=== PATIENT | male | born 1940 | race Caucasian/White ===

== ENCOUNTER 2020-11-26 12:17 | Emergency (ER) | payer OTHER, SELFPAY ==
--- NOTE | ~2020-11-26 | XR_ITS ---
EXAMINATION: XR knee LT 3V EXAM DATE: 11/26/2020 12:47 INDICATION: Initial encounter following injury, with pain of the left knee. Twisting. TECHNIQUE: Three projections of the left knee. There is no prior study for comparison. FINDINGS: No evidence osteochondral defect or joint body in the left knee joint. There are no acute fractures or dislocations identified. There is no subcutaneous gas. There is moderate-sized joint effusion. There is moderate scattered arteriosclerotic disease. There is meniscal calcification. Anthony drocalcinosis can be an age related finding, but with other possible etiologies including CPPD, parat hyroid disorders, hemochromatosis, gout. 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 There are no radiopaqu e foreign bodies. IMPRESSION: 1. Moderate joint effusion. 2. Chronic findings Reviewed, dictated and finalized at location [facility]. [employer]
[2020-11-26 12:23] VITALS: BP 182/78; PULSE 57; RESP 18; TEMP 36.7; O2SAT 97
--- NOTE | 2020-11-26 12:27 | ED.LOWEXIN ---
HPI - Extremity Injury (Lower) General Chief Complaint: Extremity Injury, Lower Stated Complaint: left knee pain Time Seen by Provider: 11/26/20 12:19 Source: patient Mode of arrival: ambulatory Limitations: no limitations History of Present Illness HPI Narrative: Patient is an 81-year-old male complaining of left knee pain after he twisted it while working in his yard prior to arrival. Patient states his pain is a 5 out of 10, nonradiating, dull, aching. Patient denies any other pain or injury. Patient was able to ambulate after the injury. Patient ambulated to his room without difficulty. Related Data Allergies Allergy/AdvReac Type Severity Reaction Status Date / Time No Known Allergies Allergy Unverified 03/14/16 19:19 Review of Systems Review of Systems: All systems reviewed & are unremarkable except as noted in HPI and below PMFSH Comments Past medical history: None Family history: Noncontributory Social history: Non-smoker no EtOH use. Lives at home Exam Const: General: cooperative, healthy appearing, comfortable, no acute distress, well developed, alert and awake; No confusion Orientation/consciousness: oriented to person, oriented to place, oriented to time, patient oriented x3 and No confusion Limitations: no limitations HENMT: Head: normal to inspection, normocephalic and atraumatic Ears: hearing grossly normal bilaterally, TM normal on the right and TM normal on the left General nose exam: Normal external nose present, Normal nares present and No nasal discharge present Face and sinus: normal facial exam Mouth: Yes Normal oral and palatal mucosa present, Yes lip normal, Yes tongue normal and Yes oropharynx normal Throat: posterior oropharynx normal, tonsils normal and uvula midline Eyes: General: appearance normal, both eyes and all related structures Pupils: Equal, round and reactive pupils present EOM: EOMs intact bilaterally Neck: Neck: normal visual inspection, full ROM, no lymphadenopathy and no meningeal signs Chest: Chest palpation & inspection: normal inspection of the chest Resp: Effort & Inspection: normal respiratory effort, able to speak in complete sentences, no respiratory distress and not tachypneic Auscultation: clear to auscultation bilaterally, no crackles, no rales, no rhonchi and no wheezes Cardio: Rate: regular rate Rhythm: regular rhythm GI: Inspection: normal to inspection GI Palp: No abdominal tenderness, Yes Soft to palpation, No Tenderness to palpation present (GI), No Guarding due to palpation present (GI), No Rigid due to palpation and No Rebound tenderness present Auscultation: normal bowel sounds : General: Yes no CVA tenderness Back/Spine/Pelvis: Back: no CVA tenderness Skin: General skin exam: normal color, no rashes or lesions noted, elasticity normal and turgor normal Neuro: General: oriented to person, oriented to place, oriented to time, patient oriented x3, tone normal, moves all extremities, Normal light touch and pain sensation, no meningeal signs, no focal motor deficits, CN's II-XI intact bilaterally and No confusion Cranial nerves: Yes Equal, round and reactive pupils present Speech: No Abnormal speech present Sensory Exam: No Sensory deficit (Neuro) Extrem: General: full ROM and capillary refill normal Left lower extremity: knee (Mild swelling of the left knee) Details: swelling Other: No significant swelling the left knee. Full range of motion of the left knee. Mild pain on palpation at the knee, left. Neurovascular is intact. Patient ambulated to his room. Psych: Appearance: grossly normal and well kempt Mental Status: mental status grossly normal Speech and movement: Normal speech and movement present Affect: normal affect Attitude: cooperative Thought process: Normal thought process present Thought content: Yes Normal thought content present Insight: Good insight present (Psych) Judgement: Good judgement present (Psych) Course Vital Si
[2020-11-26] MEDS: KETOROLAC 30 MG/ML VIAL (*BKC) IM (12:33)
[2020-11-26 13:27] VITALS: BP 150/72; PULSE 78; RESP 18; O2SAT 99
== END 2020-11-26 13:30 | disposition home or self-care (01) ==
PROVIDERS: Emergency Provider Emergency Medicine; PCP Internal Medicine
DX: S83.92XA Sprain of unspecified site of left knee, initial encounter (principal); X50.9XXA Other and unspecified overexertion or strenuous movements or postures, initial encounter
CPT/HCPCS: 73562; 96372; 99283; J1885

== ENCOUNTER 2021-10-12 15:46 | Emergency (ER) | payer OTHER, SELFPAY ==
[2021-10-12] VITALS (8 sets, daily range): BP systolic 143–174; BP diastolic 69–81; PULSE 72–90; RESP 16–29; TEMP 36.3–36.6; O2SAT 97–100
--- NOTE | ~2021-10-12 | XR_ITS ---
EXAMINATION: XR chest 1V portable INDICATION: Cough and weakness TECHNIQUE: Portable AP chest at 1622 hours COMPARISON: None available FINDINGS: There are airspace opacities of the mid and lower lung zones. No pleural effusion or pneumo thorax is identified. The cardiomediastinal silhouette is normal. A radiopaque density projecting ove r the right hemidiaphragm may be external to the patient. IMPRESSION: 1. Airspace opacities of the mid and lower lung zones, likely pneumonia. Reviewed, dictated and finalized at location [facility]. [employer]
--- NOTE | 2021-10-12 15:52 | ECG_ITS ---
Measurements Intervals [place] Rate: 82 P: 63 KS: 155 QRS: -56 QRSD: 88 T: 22 QT: 376 QTc: 440 Interpretive Statements SINUS RHYTHM LEFT AXIS DEVIATION POSSIBLE LEFT ATRIAL ENLARGEMENT RSR' IN V1 OR V2, CONSIDER RIGHT VENTRICULAR HYPERTROPHY OR RIGHT VCD CONSIDER INFERIOR INFARCT, AGE INDETERMINATE BASELINE ARTIFACT- I, II, III ABNORMAL ECG Electronically Signed On 10-12-2021 16:21:44 [employer] by Kartik Hagen D.O.
--- NOTE | 2021-10-12 15:54 | PC.NURSE ---
Per patient's daughter, patient has been weaker than normal for approx 7 days, unsteady, a little confusion, diarrhea for 3-4 days. No recent antibiotic therapy, no known sick contacts. Denies any falls at home. Patient lives with his daughter.
[2021-10-12 16:12] LABS: Basophils Percent Auto 0.2 % (0.2-1.2); Hematocrit 40.3 % (42.0-52.0); Hemoglobin 13.8 g/dL (14.0-18.0); Immature Granulocyte Absolute 0.06 K/mm3 (0.00-0.031); Immature Granulocyte Percent A 0.6 % (0-0.5); Lymphocytes Absolute Auto 0.71 K/mm3 (0.9-3.2); Mean Corpuscular HGB Conc 34.2 g/dl (32-36); Mean Corpuscular Hemoglobin 31.2 pg (26-34); Mean Platelet Volume 10.9 fl (7.4-10.4); Monocytes Absolute Auto 0.8 K/mm3 (0.1-0.6); Monocytes Percent Auto 7.7 % (2.6-8.5); Neutrophils Absolute Auto 8.6 K/mm3 (1.3-6.7); Neutrophils Percent Auto 84.5 % (45.5-73.1); Platelet Count Result 231 k/mm3 (150-375); Red Blood Count 4.43 M/mm3 (4.6-6.20); Red Cell Distribution Width 13.3 % (11.5-14.5); White Blood Count 10.1 K/mm3 (4.5-10.0)
--- NOTE | 2021-10-12 16:12 | ED.WEAKNESS ---
HPI - Weakness General Chief complaint: Weakness Stated complaint: dehydration Time Seen by Provider: 10/12/21 16:06 Source: RN notes reviewed History of Present Illness HPI Narrative: Patient presents emergency room from home for weakness. Per the family the patient has been weak over the past 1 week cc not been getting up as much and has been more tired he also had patient had a decreased appetite and patient states he feels like he is dehydrated. States he was having some nausea with 1 episode of vomiting 2 days ago but none since then he denies any fevers or chills chest pain shortness of breath abdominal pain or any other symptoms. Related Data Allergies Allergy/AdvReac Type Severity Reaction Status Date / Time No Known Allergies Allergy Unverified 03/14/16 19:19 Review of Systems Review of Systems: Gen.: Denies fevers or chills ENT: Denies congestion Respiratory: Denies shortness of breath or cough CV: Denies chest pain or palpitations GI: Denies abdominal pain reports nausea vomiting 2 days ago but none since no diarrhea denies burning, urgency, frequency or hematuria Musculoskeletal: Denies back pain or muscle pain Neuro: Reports weakness Skin: Denies rash Except as documented, all other systems reviewed and negative [facility] Past Medical History Medical History (Updated 10/12/21 @ 18:47 by Igor Martin DO) Patient denies significant medical history Social History Social History (Updated 10/12/21 @ 18:46 by Igor Martin DO) Smoking status: Never smoker Exam Narrative: APPEARANCE: No acute distress, nontoxic, resting in bed EYES: EOMI HEENT: Normocephalic, atraumatic, OMM hard of hearing RESPIRATORY: No respiratory distress Clear to auscultation bilaterally with no rhonchi wheezing or rales. CARDIOVASCULAR: Regular rate and rhythm without murmurs rubs or gallops. ABDOMINAL: Soft, nontender, nondistended, no rebound or guarding MUSCULOSKELETAl: Moves all extremities. No clubbing, cyanosis or edema. NEURO: Awake and alert. Following commands, speech normal, no focal deficits SKIN:: Warm, dry. No rashes lesions or abrasions PSYCHIATRIC: Normal affect/mood, Course Course Emergency Course: Patient drinking water in the ER. Able to get up and ambulate in the ED with no difficulty oxygen saturations remain 95% and higher Discussed with patient results of workup and diagnosis. Discussed need for follow-up with primary care, proper use of medication, and reasons to return to the emergency department. Patient understands and agrees to current treatment plan Vital Signs Vital signs: Vital Signs Temperature 97.9 F 10/12/21 15:48 Pulse Rate 87 10/12/21 15:48 Respiratory Rate 16 10/12/21 15:48 Blood Pressure 145/78 H 10/12/21 15:48 Pulse Oximetry 97 10/12/21 15:48 Temperature 97.4 F L 10/12/21 16:00 Pulse Rate 72 10/12/21 16:31 Respiratory Rate 25 H 10/12/21 16:31 Blood Pressure 158/69 H 10/12/21 16:31 Pulse Oximetry 100 10/12/21 16:31 MDM - Weakness Lab Data Result diagrams: 10/12/21 16:02 10/12/21 16:02 Labs: Lab Results 10/12/21 10/12/21 10/12/21 Range/Units 16:02 16:02 16:16 WBC 10.1 H (4.5-10.0) K/mm3 RBC 4.43 L (4.6-6.20) M/mm3 Hgb 13.8 L (14.0-18.0) g/dL Hct 40.3 L (42.0-52.0) % MCV 91.0 (80-100) fl MCH 31.2 (26-34) pg MCHC 34.2 (32-36) g/dl RDW 13.3 (11.5-14.5) % Plt Count 231 (150-375) k/mm3 MPV 10.9 H (7.4-10.4) fl Immature Gran % (Auto) 0.6 H (0-0.5) % Neut % (Auto) 84.5 H (45.5-73.1) % Lymph % (Auto) 7.0 L (18.3-44.2) % [place] % (Auto) 7.7 (2.6-8.5) % Eos % (Auto) 0.0 (0-4.4) % Baso % (Auto) 0.2 (0.2-1.2) % Lymph # (Auto) 0.71 L (0.9-3.2) K/mm3 [place] # (Auto) 0.8 H (0.1-0.6) K/mm3 Eos # (Auto) 0.0 (0-0.3) K/mm3 Baso # (Auto) 0.0 (0.0-0.1) K/mm3 Abs Immat Gran (auto) 0.06 H (0.00-0.031) K/mm3 Absolute Neuts (aut
[2021-10-12] MEDS: SODIUM CHLORIDE 0.9% IV 1,000 ML 999 ML IV CONT (16:26)
[2021-10-12 16:53] LABS: Alanine Aminotransferase 115 U/L (4-50); Albumin Level 3.5 g/dL (3.5-5.1); Alkaline Phosphatase 99 U/L (38-126); Anion Gap 9 mmol/L (8-16); Aspartate Amino Transferase 177 U/L (17-59); Bilirubin,Total 1.1 mg/dL (0.2-1.3); Blood Urea Nitrogen 17 mg/dL (9-20); Calcium 8.7 mg/dL (8.4-10.2); Carbon Dioxide 28 mmol/L (22-30); Chloride 98 mmol/L (98-107); Estimated CRCL calculation 68 ml/min; Estimated Glomerular Filt Rate > 60; Glucose 132 mg/dL (65-110); Potassium 3.3 mmol/L (3.4-5.0); Sodium 135 mmol/L (137-145)
[2021-10-12 17:02] LABS: Lipase 87 U/L (23-300)
[2021-10-12 17:26] LABS: SARS-CoV-2 RNA PCR Positive
[2021-10-12 17:51] LABS: Add Urine Microscopic? YES; Appearance Urine Clear (Clear); Bilirubin Urine Negative (Negative); Blood Urine Negative (Negative); Color Urine Amber (Yellow); Glucose Urine UA Negative (Negative); Ketones Urine Negative (Negative); Leukocyte Esterase Ur Negative LEU/UL (Negative); Mucus Urine Rare /lpf; Nitrate Urine Negative (Negative); Protein Urine 2+ mg/dL (Negative); Specific Grav Ur 1.023 (1.001-1.035); Squamous Epithelial Cell Urine Rare /hpf (Few); WBC Urine 0-3 /hpf
--- NOTE | 2021-10-12 17:54 | PC.NURSE ---
Patient ambulated with group underwriter from bed to door and back without difficulty. Patient saturation sitting at bedside was 94%, upon standing and walking patient's oxygen saturations were 95% and returning to bed it was 95%. Patient did become SOB with walking but oxygen saturations remained 95%.
== END 2021-10-12 19:08 | disposition home or self-care (01) ==
PROVIDERS: Emergency Medicine; Emergency Provider Emergency Medicine; PCP Internal Medicine
DX: U07.1 COVID-19 (principal); R94.31 Abnormal electrocardiogram [ECG] [EKG]; R91.8 Other nonspecific abnormal finding of lung field
CPT/HCPCS: 36415; 71045; 80053; 81001; 83690; 85025; 93005; 96360; 99284; C9803; J7030; U0003; U0005

== ENCOUNTER 2022-06-09 12:47 | Emergency (ER) | payer OTHER, SELFPAY ==
--- NOTE | ~2022-06-09 | CT_ITS ---
EXAMINATION: CT abdomen pelvis wo con DATE: 06/09/2022 15:39 INDICATION: Lower abdominal pain, dysuria TECHNIQUE: Computed tomography (CT) of the abdomen and pelvis was performed without intravenous contr ast. Automated exposure control and iterative reconstruction technique were employed. Exam dose: 255 .46 mGy-cm total exam DLP. COMPARISON: 03/10/2016 CT abdomen pelvis FINDINGS: Emphysematous changes are again noted in the included lower lung zones, with prominent rela tively peripheral septal soft tissue thickening and honeycombing which may be consistent with superim posed usual interstitial pneumonia type interstitial fibrosis. There is focal discoid atelectasis or scarring at the base of the lingula. No pericardial or pleural effusion. There are multiple stones in the dependent aspect of the gallbladder. There is a prominent calcificat ion at the right posterolateral dome of the liver. Stable left hepatic probable cyst. Normal splenic size. There are multiple pancreatic calcifications consistent with chronic pancreatitis. No adrenal mass lesion or renal mass lesion is evident. No ureteral calculus or hydroureteronephrosis . The urinary bladder is unremarkable. There is prostate enlargement and calcification. Normal appendix. Diverticulosis of the colon, particularly involving the sigmoid colon; no CT evidenc e of diverticulitis. There is a prominent amount fecal material in the rectum and colon but no bowel obstruction or intraperitoneal free air is detected. There is extensive calcification of the abdominal aorta and iliac arteries but no abdominal aortic an eurysm. No intraperitoneal or retroperitoneal or pelvic mass lesion or adenopathy or ascites. Degenerative changes of the thoracic and lumbar spine including severe multilevel degenerative disc d isease and spurring of the lumbar spine and degenerative change at the apophyseal joints. No suspicio us osteolytic or osteoblastic lesions are noted. Bilateral hip osteoarthritis. IMPRESSION: Emphysema, probable superimposed usual interstitial pneumonia type interstitial pulmonar y fibrosis Focal discoid atelectasis or scarring at the base of the lingula Cholelithiasis Chronic benign focal calcification of the hepatic dome Chronic pancreatitis Prostate enlargement and calcification Diverticulosis of the colon; no evidence of diverticulitis Normal appendix Reviewed, dictated and finalized at [facility]. Reviewed, dictated and finalized at location [facility]. IMPRESSION: Emphysema, probable superimposed usual interstitial pneumonia type interstitial pulmonary fibrosis Focal discoid atelectasis or scarring at the base of the lingula Cholelithiasis Chronic benign focal calcification of the hepatic dome Chronic pancreatitis Prostate enlargement and calcification Diverticulosis of the colon; no evidence of diverticulitis Normal appendix
[2022-06-09 13:02] VITALS: BP 123/64; PULSE 79; RESP 14; TEMP 37.1; O2SAT 99
[2022-06-09 15:15] LABS: Appearance Urine Clear (Clear); Bilirubin Urine Negative (Negative); Blood Urine Negative (Negative); Color Urine Yellow (Yellow); Glucose Urine UA Negative (Negative); Ketones Urine Negative (Negative); Leukocyte Esterase Ur Negative LEU/UL (Negative); Nitrate Urine Negative (Negative); Protein Urine Negative (Negative); Urobilinogen Urine 0.2 mg/dL (<2.0); pH Urine 6.5 (5.0-9.0)
[2022-06-09 15:20] LABS: Mucus Urine Rare /lpf; RBC Urine 0-2 /hpf (0-2); Squamous Epithelial Cell Urine Rare /hpf (Few); WBC Urine 0-3 /hpf
[2022-06-09 15:24] LABS: Add Urine Microscopic? NO
[2022-06-09 16:00] LABS: Basophils Percent Auto 0.5 % (0.2-1.2); Eosinophils Percent Auto 0.5 % (0-4.4); Hematocrit 42.1 % (42.0-52.0); Hemoglobin 14.1 g/dL (14.0-18.0); Immature Granulocyte Absolute 0.13 K/mm3 (0.00-0.031); Immature Granulocyte Percent A 1.5 % (0-0.5); Lymphocytes Absolute Auto 1.82 K/mm3 (0.9-3.2); Lymphocytes Percent Auto 21.4 % (18.3-44.2); Mean Corpuscular HGB Conc 33.5 g/dl (32-36); Mean Corpuscular Hemoglobin 31.3 pg (26-34); Mean Corpuscular Volume 93.3 fl (80-100); Mean Platelet Volume 11.4 fl (7.4-10.4); Monocytes Absolute Auto 0.4 K/mm3 (0.1-0.6); Neutrophils Absolute Auto 6.1 K/mm3 (1.3-6.7); Neutrophils Percent Auto 71.1 % (45.5-73.1); Platelet Count Result 176 k/mm3 (150-375); Red Blood Count 4.51 M/mm3 (4.6-6.20); Red Cell Distribution Width 12.9 % (11.5-14.5); White Blood Count 8.5 K/mm3 (4.5-10.0)
[2022-06-09 16:14] LABS: Alanine Aminotransferase 16 U/L (6-50); Albumin Level 4.3 g/dL (3.5-5.1); Alkaline Phosphatase 65 U/L (38-126); Anion Gap 9 mmol/L (8-16); Aspartate Amino Transferase 27 U/L (17-59); Bilirubin,Total 0.5 mg/dL (0.2-1.3); Blood Urea Nitrogen 12 mg/dL (9-20); Calcium 8.9 mg/dL (8.4-10.2); Carbon Dioxide 24 mmol/L (22-30); Chloride 101 mmol/L (98-107); Estimated Glomerular Filt Rate > 60; Glucose 91 mg/dL (65-110); Potassium 4.1 mmol/L (3.4-5.0); Sodium 134 mmol/L (137-145)
[2022-06-09] MEDS: SULFAMETHOXAZOLE/TRIMETHOPRIM 800/160 MG DS TABLET 1 TAB PO (17:32)
[2022-06-09 17:34] VITALS: BP 155/91; PULSE 81; RESP 14; O2SAT 99
--- NOTE | 2022-06-09 17:35 | ED.GENADULT ---
HPI - General Adult General Chief complaint: Urogenital-Male Stated complaint: UTI? Time Seen by Provider: 06/09/22 14:56 Source: RN notes reviewed History of Present Illness HPI narrative: Patient presents emergency department from home for dysuria. Patient states has been having pain with urination for the past 1 week. He states that it [place] every time that he urinates he denies any fevers or chills he states he does at times have some lower abdominal pain that goes into his lower back he denies any nausea vomiting diarrhea or any other symptoms he denies any urethral discharge Related Data Home Medications Medication Instructions Recorded Confirmed paroxetine HCl 20 mg tablet mg PO 06/09/22 06/09/22 Allergies Allergy/AdvReac Type Severity Reaction Status Date / Time No Known Allergies Allergy Verified 06/09/22 14:59 Review of Systems Review of Systems: Gen.: Denies fevers or chills ENT: Denies congestion Respiratory: Denies shortness of breath or cough CV: Denies chest pain or palpitations GI: Reports intermittent lower abdominal pain, denies nausea, emesis or diarrhea see HPI Musculoskeletal: Denies back pain or muscle pain Neuro: Denies numbness, tingling, weakness or focal weakness Skin: Denies rash Except as documented, all other systems reviewed and negative PMFSH Past Medical History Medical History Patient denies significant medical history Social History Social History Smoking status: Never smoker Exam Narrative: APPEARANCE: No acute distress, nontoxic, resting in bed EYES: EOMI HEENT: Normocephalic, atraumatic, OMM RESPIRATORY: No respiratory distress Clear to auscultation bilaterally with no rhonchi wheezing or rales. CARDIOVASCULAR: Regular rate and rhythm without murmurs rubs or gallops. ABDOMINAL: Soft, nontender, nondistended, no rebound or guarding : Circumcised male no skin lesions seen no phimosis paraphimosis no urethral discharge no scrotal swelling or erythema MUSCULOSKELETAl: Moves all extremities. No clubbing, cyanosis or edema. NEURO: Awake and alert. Following commands, speech normal, no focal deficits SKIN:: Warm, dry. No rashes lesions or abrasions PSYCHIATRIC: Normal affect/mood, Course Course Emergency Course: Discussed with Dr. Wallace at this time recommends patient started on Bactrim for a week with follow-up as an outpatient to cover for possible prostatitis Discussed with patient results of workup and diagnosis. Discussed need for follow-up with primary care, proper use of medication, and reasons to return to the emergency department. Patient understands and agrees to current treatment plan Vital Signs Vital signs: Vital Signs Temperature 98.8 F 06/09/22 13:02 Pulse Rate 79 06/09/22 13:02 Respiratory Rate 14 06/09/22 13:02 Blood Pressure 123/64 06/09/22 13:02 Pulse Oximetry 99 06/09/22 13:02 Oxygen Delivery Room Air 06/09/22 13:02 Temperature 98.8 F 06/09/22 13:02 Pulse Rate 81 06/09/22 17:34 Respiratory Rate 14 06/09/22 17:34 Blood Pressure 173/74 H 06/09/22 17:34 Pulse Oximetry 99 06/09/22 17:34 Oxygen Delivery Room Air 06/09/22 13:02 Medical Decision Making MDM Narrative Medical decision making narrative: Patient presents with dysuria exam is normal no skin lesions seen the UA shows no acute process imaging shows no signs of kidney stone lab work was within normal limits question possible prostatitis discussed with urology will start Bactrim with follow-up as an outpatient Vital Signs Vital Signs: Vital Signs Temperature 98.8 F 06/09/22 13:02 Pulse Rate 79 06/09/22 13:02 Respiratory Rate 14 06/09/22 13:02 Blood Pressure 123/64 06/09/22 13:02 Pulse Oximetry 99 06/09/22 13:02 Oxygen Delivery Room Air 06/09/22 13:02 Temperature 98.8 F 06/09/22 13:02 Pulse Rate 81
== END 2022-06-09 17:51 | disposition home or self-care (01) ==
PROVIDERS: Emergency Provider Emergency Medicine; PCP Internal Medicine
DX: R30.0 Dysuria (principal); J43.9 Emphysema, unspecified; K80.20 Calculus of gallbladder without cholecystitis without obstruction; K86.1 Other chronic pancreatitis; N40.0 Benign prostatic hyperplasia without lower urinary tract symptoms; K57.90 Diverticulosis of intestine, part unspecified, without perforation or abscess without bleeding; R91.8 Other nonspecific abnormal finding of lung field
CPT/HCPCS: 36415; 74176; 80053; 81003; 85025; 99284; A9270

== ENCOUNTER 2024-07-26 13:09 | Emergency (ER) | payer OTHER, SELFPAY ==
--- NOTE | ~2024-07-26 | CT_ITS ---
EXAMINATION: CT abdomen pelvis w con DATE: 07/26/2024 14:35 INDICATION: Jaundice. Hematuria. TECHNIQUE: Computed tomography (CT) of the abdomen and pelvis was performed with 100 mL Omnipaque 350 intravenous contrast. Automated exposure control and iterative reconstruction technique were employe d. The dose-length product was 294.56 mGy-cm. COMPARISON: CT abdomen and pelvis 06/09/2022 FINDINGS: There is severe emphysema. There is peripheral septal thickening in the lungs, consistent w ith chronic interstitial lung disease. There is mucous plugging in right lower lobe. There are airspa ce opacities in basilar right lower lobe, consistent with atelectasis versus pneumonia. There is no pleural effusion. The heart size is normal. No pericardial effusion. There is severe intrahepatic joan iary duct dilatation. 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 There are gallstones in the gallbladder, which is normal in size. Gallbladder wall thickening is n oted. The spleen is normal. There is an ill-defined hypodense mass in the head of the pancreas measur ing approximately 2.6 cm. There are calcifications in the pancreas, consistent with chronic pancreati tis. There is a stricture of the common duct. The prostate is mildly enlarged. There is diverticulosi s of the colon without evidence of diverticulitis. The appendix demonstrates a diameter of 9 mm, like ly not clinically significant. There is calcified atherosclerosis of the aorta and many of the other arteries. There is a moderate volume of ascites. There is widespread peritoneal nodularity, consisten t with carcinomatosis. 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 There is sev ere lumbar spondylosis. IMPRESSION: 1. 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 Diagnostic paracentesis is recommended. 2. 2.6 cm pancreatic mass, which may be primary adenocarcinoma or chronic pancreatitis. 3. Gallbladder wall thickening which may be chronic cholecystitis or less likely cholangiocarcinoma. 4. 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 5. Airspace opacities in right lung lower lobe, consistent with atelectasis versus pneumonia. 6. Emphysema and chronic interstitial lung disease. Reviewed, dictated and finalized at location [facility]. [employer] IMPRESSION: 1. 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 Diagnostic parace ntesis is recommended. 2. 2.6 cm pancreatic mass, which may be primary adenocarcinoma or chronic pancr eatitis. 3. Gallbladder wall thickening which may be chronic cholecystitis or less likel y cholangiocarcinoma. 4. 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 5. Airspace opacities in right lung lower lobe, consistent with atelectasis teri anthony pneumonia. 6. Emphysema and chronic interstitial lung disease.
[2024-07-26 13:16] VITALS: BP 102/34; PULSE 93; RESP 20; TEMP 36.8; O2SAT 100
--- NOTE | 2024-07-26 13:32 | ED.GENADULT ---
HPI - General Adult General Chief complaint: Unspecified Stated complaint: jaundice Time Seen by Provider: 07/26/24 13:26 History of Present Illness HPI narrative: Per daughter at bedside, patient has had weight loss and malaise on and off for about a year, about 2 weeks ago he had noticed some blood in his urine and contoured urgent care where he was placed on antibiotics before finding out he did not actually have a urinary tract infection, and when his daughter saw him today she noticed that he was completely yellow, to come to the ER immediately. Patient reports some mild abdominal discomfort, no nausea or vomiting. Related Data Home Medications Medication Instructions Recorded Confirmed paroxetine HCl 20 mg tablet mg PO 06/09/22 06/09/22 Allergies Allergy/AdvReac Type Severity Reaction Status Date / Time No Known Allergies Allergy Verified 06/09/22 14:59 Review of Systems Review of Systems: All systems reviewed & are unremarkable except as noted in HPI and below PMFSH Past Medical History Medical History Patient denies significant medical history Social History Social History Smoking status: Never smoker Exam Narrative: EXAMINATION OF ORGAN SYSTEMS/BODY AREAS: Constitutional: Vital signs per nursing GENERAL:[No acute distress, non-toxic appearing.] HEAD: Normal with no signs of head trauma. EYES: Icterus sclera ENT: Hearing grossly intact LUNGS: Nonlabored breathing. HEART: [Regular rate and rhythm] ABD: [Soft], [nontender to palpation] EXT: Normal range of motion SKIN: jaundiced NEURO: [Alert and oriented x 3. No gross focal sensory or strength deficits.] PSYCH: Normal affect Course Vital Signs Vital signs: Vital Signs Temperature 98.2 F 07/26/24 13:16 Pulse Rate 93 07/26/24 13:16 Respiratory Rate 20 07/26/24 13:16 Blood Pressure 102/34 L 07/26/24 13:16 Pulse Oximetry 100 07/26/24 13:16 Oxygen Delivery Room Air 07/26/24 13:16 Temperature 98.2 F 07/26/24 13:16 Pulse Rate 91 07/26/24 15:29 Respiratory Rate 14 07/26/24 15:29 Blood Pressure 129/82 07/26/24 15:29 Pulse Oximetry 98 11/05/24 15:29 Oxygen Delivery Room Air 07/26/24 13:16 Medical Decision Making [facility] Narrative Medical decision making narrative: patient presents with hematuria, he is completely jaundiced here, abdomen soft without significant tenderness. Given his appearance am highly concerned for possible pancreatic cancer especially given the year long wait loss, versus possible gallbladder etiology etc. IV morphine given. 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 long discussion with the patient and daughter at bedside, that the findings here are strongly suspicious for pancreatic cancer however we cannot make that diagnosis here and he may need further testing and treatment, patient states that he is 83 and does not want anything invasive nor does he want to be treated for anything though he does want to make sure that he is kept comfortable. I do feel this is quite reasonable, they will follow up with primary care doctor for goals of care discussion and possible palliative care. I let him know he can always return to the emergency room for any further issues. Vital Signs Vital Signs: Vital Signs Temperature 98.2 F 07/26/24 13:16 Pulse Rate 93 07/26/24 13:16 Respiratory Rate 20 07/26/24 13:16 Blood Pressure 102/34 L 07/26/24 13:16 Pulse Oximetry 100 07/26/24 13:16 Oxygen Delivery Room Air 07/26/24 13:16 Temperature 98.2 F 07/26/24 13:16 Pulse Rate 91 07/26/24 15:29 Respiratory Rate 14 07/26/24 15:29 Blood Pressure 129/82 07/26/24 15:29 Pulse Oximetry 98 07/26/24 15:29 Oxygen Delivery Room Air 07/26/24 13:16 Lab Data 07/26/24 13:37 07/26/24 13:37 Labs: Lab Results 07/26/24 07/26/24 Range/Units 13:37 14:55 WBC 13.0 H (4.5-10.0) K/mm3 RBC 3.89 L (4.6-6.20) M/mm3 Hgb 12.5 L (14.0-18.0) g/dL Hct 35.9 L (42.0-52.0) % MCV 92.3 (80-100) fl MCH 32.1 (26-34) pg MCHC 34.8 (32-36) g/dl RDW 14.1 (11.5-14.5) % Plt Count 296 D (150-375) k/mm3 MPV 12.1 H (7.4-10.4) fl Immature Gran % (Auto) Not Reportable Neut % (Auto) Not Reportable Lymph % (Auto) Not Reportable [place] % (Auto) Not Reportable Eos % (Auto) Not Reportable Baso % (Auto) Not Reportable Lymph # (Auto) Not Reportable [place] # (Auto) Not Reportable Eos # (Auto) Not Reportable Baso # (Auto) Not Reportable Abs Immat Gran (auto) Not Reportable Absolute Neuts (auto) Not Reportable Absolute Nucleated RBC Not Reportable Nucleated RBC % Not Reportable Platelet Estimate Adequate (Adequate) Large Platelets Present Giant Platelets Present Target Cells 1+ Schistocytes None seen PT 16.7 H (11.1-14.7) Seconds INR 1.3 Sodium 135 L (137-145) mmol/L Potassium 4.1 (3.4-5.0) mmol/L Chloride 102 (98-107) mmol/L Carbon Dioxide 24 (22-30) mmol/L Anion Gap 9 (4-12) mmol/L BUN 25 H D (9-20) mg/dL Creatinine 0.70 (0.7-1.3) mg/dL Estim Creat Clear Calc 59 ml/min Estimated GFR > 60 (59 - ) Glucose 120 H (65-110) mg/dL Lactic Acid 2.6 H (0.7-2.0) mmol/L Calcium 8.5 (8.4-10.2) mg/dL Total Bilirubin 17.5 H (0.2-1.3) mg/dL AST 141 H (17-59) U/L ALT 113 H (6-50) U/L Alkaline Phosphatase 297 H (38-126) U/L Total Protein 7.0 (6.3-8.2) g/dL Albumin 2.9 L (3.5-5.1) g/dL Lipase 68 (23-300) U/L Urine Color Dark yellow (Yellow) Urine Appearance Clear (Clear) Urine pH 6.0 (5.0-9.0) Ur Specific [place] > 1.045 H (1.001-1.035) Urine Protein 1+ H (Negative) mg/dL Urine Glucose (UA) Negative (Negative) mg/dL Urine Ketones Negative (Negative) mg/dL Ur Blood (Man) Negative (Negative) Urine Nitrate Positive H (Negative) Urine Bilirubin 3+ H (Negative) Urine Urobilinogen 1.0 (<2.0) mg/dL Add Ur Microanalysis Reviewed Leukocyte Esterase Rfl 1+ H (Negative) GERMAN/UL Urine RBC 6-10 H (0-2) /hpf Urine WBC 0-5 (0-3) /hpf Ur Squamous Epith Cells Few (Few) /hpf Urine Bacteria None seen /hpf Urine Casts 0-2 Urine Mucus Present /lpf Discharge Plan Discharge Clinical Impression: Pancreatic cancer, Jaundice Patient Disposition: Home, Self-Care Condition: Stable Instructions: Pancreatic Cancer (DC), Jaundice (ED) Additional Instructions: Your CT scan and labs today together are concerning for possible pancreatic cancer. You may need further testing for diagnosis and treatment plan. Please discuss this with your primary care doctor. He can always return to the emergency room for any further issues, especially if you have uncontrolled pain or nausea or vomiting.. Prescriptions: New ondansetron 4 mg tablet,disintegrating 4 mg PO Q8H PRN (Reason: nausea and vomiting) Qty: 10 0RF hydrocodone-acetaminophen 5-300 mg tablet 1 tablet PO Q6H PRN (Reason: pain) Qty: 20 0RF No Action paroxetine HCl 20 mg tablet PO sulfamethoxazole-trimethoprim [Bactrim DS] 800-160 mg tablet 1 tablet PO Q12H Qty: 14 0RF Follow-up/Referrals: Emerita,Yannick Falcon MD [Primary Care Provider] -
[2024-07-26 13:44] LABS: Hematocrit 35.9 % (42.0-52.0); Hemoglobin 12.5 g/dL (14.0-18.0); Mean Corpuscular HGB Conc 34.8 g/dl (32-36); Mean Corpuscular Hemoglobin 32.1 pg (26-34); Mean Corpuscular Volume 92.3 fl (80-100); Mean Platelet Volume 12.1 fl (7.4-10.4); Platelet Count Result 296 k/mm3 (150-375); Red Blood Count 3.89 M/mm3 (4.6-6.20); Red Cell Distribution Width 14.1 % (11.5-14.5)
[2024-07-26 13:57] LABS: Lactic Acid Reflex 2.6 mmol/L (0.7-2.0)
[2024-07-26 14:01] LABS: INR 1.3; Prothrombin Time 16.7 Seconds (11.1-14.7)
[2024-07-26 14:03] LABS: Large Platelets Present; Platelet Estimate Adequate (Adequate)
[2024-07-26 14:04] LABS: Giant Platelets Present
[2024-07-26 14:06] LABS: Schistocytes None Seen; Target Cells 1+
[2024-07-26 14:17] LABS: Alanine Aminotransferase 113 U/L (6-50); Albumin Level 2.9 g/dL (3.5-5.1); Alkaline Phosphatase 297 U/L (38-126); Anion Gap 9 mmol/L (4-12); Aspartate Amino Transferase 141 U/L (17-59); Bilirubin,Total 17.5 mg/dL (0.2-1.3); Blood Urea Nitrogen 25 mg/dL (9-20); Calcium 8.5 mg/dL (8.4-10.2); Carbon Dioxide 24 mmol/L (22-30); Chloride 102 mmol/L (98-107); Estimated CRCL calculation 59 ml/min; Estimated Glomerular Filt Rate > 60; Glucose 120 mg/dL (65-110); Lipase 68 U/L (23-300); Potassium 4.1 mmol/L (3.4-5.0); Sodium 135 mmol/L (137-145)
[2024-07-26 15:03] VITALS: PULSE 94; RESP 14; O2SAT 100
[2024-07-26 15:27] LABS: Add Urine Microscopic? YES; Appearance Urine Clear (Clear); Bacteria Urine None Seen /hpf; Bilirubin Urine 3+ (Negative); Blood Urine Negative (Negative); Color Urine Dark Yellow (Yellow); Glucose Urine UA Negative (Negative); Ketones Urine Negative (Negative); Leukocyte Esterase Ur 1+ LEU/UL (Negative); Mucus Urine Present /lpf; Need Manual Microscopic Reviewed; Nitrate Urine Positive (Negative); Non Pathogenic Casts 0-2; Protein Urine 1+ mg/dL (Negative); Specific Grav Ur > 1.045 (1.001-1.035); Squamous Epithelial Cell Urine Few /hpf (Few); WBC Urine 0-5 /hpf (0-3)
--- NOTE | 2024-07-26 15:28 | PC.NURSE ---
Pain medication offered. Morphine refused at this time. Pt states well I'm not in that much pain right now.
[2024-07-26 15:29] VITALS: BP 129/82; PULSE 91; RESP 14; O2SAT 98
[2024-07-26 16:18] VITALS: BP 123/70; PULSE 86; RESP 16; O2SAT 98
[2024-07-26 16:41] LABS: Reflex Lactic Acid Yes or No Add Lactic
== END 2024-07-26 16:24 | disposition home or self-care (01) ==
PROVIDERS: Emergency Provider Emergency Medicine; PCP Internal Medicine
DX: C25.9 Malignant neoplasm of pancreas, unspecified (principal); R17 Unspecified jaundice; J43.9 Emphysema, unspecified; J84.9 Interstitial pulmonary disease, unspecified; R91.8 Other nonspecific abnormal finding of lung field; R93.2 Abnormal findings on diagnostic imaging of liver and biliary tract; R82.998 Other abnormal findings in urine
CPT/HCPCS: 36415; 74177; 80053; 81001; 83605; 83690; 85025; 85610; 87086; 99284; Q9967